=== PATIENT | male | born 2000 | race Caucasian/White ===

== ENCOUNTER 2024-01-18 08:57 | Emergency (ER) | payer OTHER ==
[~2024-01-18] VITALS: Ht 182.9 cm; Wt 77.3 kg
[2024-01-18] MEDS ORDERED: IBUPROFEN600 M1 PO (09:18)
[2024-01-18] MEDS ORDERED: AMOXICILLIN 50500 MG (09:18)
[2024-01-18 09:37] VITALS: BP 116/74
== END 2024-01-18 09:40 | disposition home or self-care (01) ==
LOC: ED 08:57
DX: Z48.00 Encounter for change or removal of nonsurgical wound dressing (principal)